=== PATIENT | male | born 1955 | race Caucasian/White ===

== ENCOUNTER 2018-12-05 00:12 | Observation (INO) | payer MEDICARE, OTHER ==
[~2018-12-05] VITALS: Ht 170.2 cm; Wt 76.2 kg
[2018-12-05] VITALS (12 sets, daily range): BP systolic 113–149; BP diastolic 74–97
[~2018-12-05 00:12] MED LIST: ATOR40TA24 PO; LISI20TA29 PO
[2018-12-05] MEDS ORDERED: ACETAMINOPHEN 500 MG TAB PO ONE (09:30)
[2018-12-05] MEDS ORDERED: FAMOTIDINE 20 MG TAB PO ONE (09:30)
[2018-12-05] MEDS ORDERED: MIDAZOLAM 2 MG/2 ML VIAL IVP PRN (09:30)
[2018-12-05] MEDS ORDERED: ceFAZolin(*) 2GM/D5W 50ML 50 ML IVPB ONE (09:30)
[2018-12-05] MEDS ORDERED: CELECOXIB 200 MG CAP PO ONE (09:30)
[2018-12-05] MEDS ORDERED: NORMOSOL R SOLN(*) 1000 ML BAG 1,000 ML IV PRN (09:30)
[2018-12-05] MEDS ORDERED: ROPIVACAINE/EPI/CLONIDINE/KET 50 ML SYRINGE INJ ONE (09:30)
[2018-12-05] MEDS ORDERED: LIDOCAINE/SOD BICARB 8.4% SYR ID ONE (09:30)
[2018-12-05] MEDS ORDERED: TRANEXAMIC AC 1000 MG/10ML SDV 1,000 MG in DEXTROSE 5% 50 ML BAG 50 ML IV ONE (09:30)
[2018-12-05] MEDS ORDERED: BACITRACIN 50000 UNIT/VIAL 100,000 UNIT in NS 0.9% 3000 ML IRRIGATION BAG 3,000 ML IR ONE (09:30)
[2018-12-05] MEDS ORDERED: PREGABALIN 150 MG CAPSULE PO ONE (09:30)
[2018-12-05] MEDS ORDERED: LIDOCAINE MPF 1% 5 ML VIAL ONE (09:59)
[2018-12-05] MEDS ORDERED: DEXAMETHASONE SOD PHOS 10MG/ML ONE (09:59)
[2018-12-05] MEDS ORDERED: fentaNYL CITR 100 MCG/2 ML AMP ONE (09:59)
[2018-12-05] MEDS ORDERED: ONDANSETRON 4 MG/2 ML VIAL ONE (09:59)
[2018-12-05] MEDS ORDERED: PROPOFOL EMUL(*) 10MG/ML 20 ML 20 ML ONE (09:59)
[2018-12-05] MEDS ORDERED: MAGNESIUM HYDROXIDE* 30ML UDCP PO PRN (15:10)
[2018-12-05] MEDS ORDERED: ONDANSETRON 4 MG/2 ML VIAL IVP PRN (15:10)
[2018-12-05] MEDS ORDERED: PROMETHAZINE 25 MG/ML 1 ML AMP IVP PRN (15:10)
[2018-12-05] MEDS ORDERED: BISACODYL 10 MG SUPP PR PRN (15:10)
[2018-12-05] MEDS ORDERED: diphenhydrAMINE 50 MG/ML VIAL IVP PRN (15:10)
[2018-12-05] MEDS ORDERED: MAGNESIUM CITRATE 300 ML BTL PO PRN (15:10)
[2018-12-05] MEDS ORDERED: LR 1000 ML BAG 1000 ML IV PRN (15:10)
[2018-12-05] MEDS ORDERED: FLUSH 10 ML SYR IVP PRN (15:10)
[2018-12-05] MEDS ORDERED: diphenhydrAMINE 25 MG CAP PO PRN (15:10)
[2018-12-05] MEDS ORDERED: HYDROmorphone HCL 2 MG/ML SDV IVP PRN (15:10)
[2018-12-05] MEDS ORDERED: ZOLPIDEM TARTRATE 5 MG TAB PO PRN (15:10)
--- NOTE | 2018-12-05 16:23 | RADIOLOGY IMAGING REPORT ---
FACILITY: [facility] - [place] PATIENT NAME: Daniella Jeffers : 1955 MR: [id number] V: [id number] EXAM DATE: ORDERING PHYSICIAN: DANIELLA TORO TECHNOLOGIST: Location: [facility] - [place] Patient: Daniella Jeffers : 1955 Visit/Account:[id number] Date of Sevice: 12/05/2018 EXAMINATION: Left knee, 2 views 12/05/2018 3:09 PM HISTORY: S/P TOTAL KNEE ARTHROPLASTY, CHECK PLACEMENT COMPARISON: 07/19/2008 FINDINGS: Indwelling left TKA appears to be well seated and articulates appropriately. There is pos tsurgical soft tissue gas. No acute bony finding otherwise. IMPRESSION: Status post left TKA. Report Dictated By: Heriberto Dash MD at 12/05/2018 3:48 PM Report E-Signed By: Heriberto Dash MD at 12/05/2018 3:49 PM WSN:[email or web address]
--- NOTE | 2018-12-05 16:48 | Hospitalist Consultation ---
History of Present Illness Requesting Physician Dr. Barry Reason for Consult Medical Management Chief Complaint s/p left knee replacement History of Present Illness She was admitted s/p left knee replacement. It is reported the surgery went well and without complication. History Problems: (1) Hypertension Status: Chronic (2) Hyperlipidemia Status: Chronic Home Meds Reported Medications Atorvastatin Calcium (LIPITOR) 40 Mg Tablet, 1 TAB PO QHS, TAB 11/28/18 Lisinopril (LISINOPRIL) 20 Mg Tablet, 20 MG PO QHS, TAB 11/28/18 Allergies: Coded Allergies: No Known Drug Allergies (Unverified , 11/28/18) Patient History: FH: ME (myocardial infarction) FATHER, , Age:68 FH: hypertension BROTHER OR SISTER Hx Smoking: No Caffeine Intake: Coffee Caffeine/Cups Per Day: 3CPD Hx Alcohol Use: Yes Hx Substance Use Disorder: No Social Drug Use: Never History of IV Drug Use: No Review of Systems All Systems Reviewed/Normal: Yes, Except as Noted Exam Vital Signs Vital Signs Date Time Temp Pulse Resp B/P (MAP) Pulse Ox O2 Delivery O2 Flow Rate FiO2 12/05/18 16:00 83 16 91 12/05/18 09:30 98.2 149/97 (114) Room Air General Appearance: Alert, Awake, No Acute Distress, Afebrile Neuro: No Gross deficits Cardiovascular: Regular Rate and Rhythm Respiratory: No Respiratory Distress, Clear to Auscultation GI: Abd Soft and Non-Tender Psych: Alert & Oriented X3, Appropriate Mood & Affect Assessment and Plan Problems: (1) Status post left knee replacement Status: Acute Assessment & Plan: Followed by Dr. Barry. He will be placed on Aspirin for DVT prophylaxis. (2) Hypertension Status: Chronic Assessment & Plan: He is on chronic treatment with Lisinopril. This has been restarted with hold parameters. (3) Hyperlipidemia Status: Chronic Assessment & Plan: He is on chronic treatment with Atorvastatin. Venous Thromboembolism Antithrombotics Is Pt On Any Antithrombotics?: No Problem Qualifiers (1) Hypertension: Hypertension type: essential hypertension Qualified Codes: I10 - Essential (primary) hypertension LEXY REYES [employer] Dec 05, 2018 16:48
--- NOTE | 2018-12-05 17:01 | OPERATIVE REPORT 1 ---
EVENT DATE: December 05, 2018 SURGEON: Joshua Barry MD ANESTHESIOLOGIST: Sunil Hallman MD ANESTHESIA: General and spinal. ELECTRONIC SCALE TESTER: Ermias Avila PA-C PREOPERATIVE DIAGNOSIS Left knee osteoarthritis with significant deformity. POSTOPERATIVE DIAGNOSIS Left knee osteoarthritis with significant deformity. PROCEDURE PERFORMED Left total knee arthroplasty which deserves modifier -22 since we had to use stem components secondarily due to the patient's deformity, and that required time and a half of surgeon effort and skill as well as time to perform the procedure. FINDINGS The patient has a significant amount of arthritic changes associated with the knee, but was amenable for total knee replacement once we used the stem components to correct the deformity. ESTIMATED BLOOD LOSS About 220 mL. DRAINS None. COMPLICATIONS None. TOURNIQUET TIME 16 minutes, which was only during cementation of the components. IMPLANTS USED Stayzilla system with a 6 left posterior stabilized femur with a 6 rotating platform revision tibial component, a 6 x 10 mm rotating platform posterior stabilized insert, and a 38 anatomic patella. SPECIMENS None. INDICATIONS AND HISTORY This patient is a 63-year-old male who presented to my clinic for evaluation of left knee pain and irritation going on for some time. He continued to have pain and irritation despite conservative management, and so therefore, he wanted to go ahead with a total knee arthroplasty. We talked about the implications of a total knee arthroplasty and the risks and benefits associated with this, and informed consent was obtained. We also talked about his significant deformity and how it is going to take a little bit longer, and there are more risks associated with that given the fact that his femur was subluxed medially compared to the tibia and there was a significant amount of osteophyte formation and laxity associated with the ligaments. DESCRIPTION OF PROCEDURE As the patient was brought into the operating room, he and the procedure were both verified. He was placed supine on the operating room, and after being given a spinal by Anesthesia, he was induced and intubated. The left lower extremity was then prepped and draped in the usual fashion. A timeout was observed verifying the correct patient and procedure. The standard incision was made over the left knee directly over the patella and a little bit towards the medial side on the tubercle. It was taken through the skin and subcutaneous tissue until I was able to do a medial parapatellar approach. Once able to do a medial parapatellar approach, I then subluxed the patella to the lateral side and then removed a lot of the osteophytes off the patella and also some of the thickened tissue and irritated tissue over this site. I was unable to remove a lot of synovium and then do medial releases. We needed to do a medial release on that side secondarily due to the fact that he had subluxation of the femur. I was able to remove a significant amount of osteophytes from the tibia and the femur in order to gain access to the true bone on both sides and then remove the anterior menisci that were extruded over the anterior aspect of the medial side and a little bit over the lateral side. Once I was able to do some releases, I was then able to get access to the femur itself and then put it in high flexion. Once into high flexion, I was then able to drill the central drill hole after removing the osteophytes off the notch. I took quite a bit of time to clear off the notch itself as he has bone that had pretty much encased over this entire aspect. I was then able to put in the intramedullary guide and put it on the standard [id number] cup for the Attune system on the left side. This then sized the distal femur to the 6 size femur, and then we put on the 6 four-in-one cutting block and was able to cut off the regular anterior and posterior cuts and chamfer cuts without any major issues. I then put in the notch-cutting block and then cut the notch without any major difficulty. I then turned attention to the tibia. Once on the tibia, I was then able to remove some of the posterior menisci still and a little bit of the rest of the ACL and PCL in this area. I then was able to drill intramedullary into the tibia itself and then used the intramedullary guide from the Attune system in order to get alignment of the tibia. Once I did this, I then cut a wafer off the tibia, cutting 2 mm off the medial side to try and preserve as much bone stock as possible as we knew we would need a large poly with the significant deformity associated with it. I then took a significant amount of time to remove a lot of the posterior osteophytes off the distal femur and as well as on the proximal tibia. In addition, I also had to release some of the capsule in this area as he did have a flexion contracture on the one side, and then we were also able to remove the rest of the extruded menisci, but there was a significant amount of soft tissue irritation and damage over this area. Once we got back up to a good position, I was then able to put in the femoral spacing block, and everything looked pretty good for a 10 mm poly. I then prepped the rest of the tibia with drilling the intramedullary hole and then using the step cut drill out of the revision system from the tibia in order to put it down into the femoral canal and then put in the standard tibial prep without any difficulty. I then trialed the 8 mm. This was a little bit too loose, so then we went to a 10 mm, and this fit well, and so therefore, this was the final component chosen, and it had good both extension and gaps within the flexion and extension aspects. I then prepared the patella without any major difficulty by first sizing the patella, and then cutting 9.5 mm off, sizing it to a 38 mm patella, drilling the holes, and then putting in the trial patella. This tracked well, and so therefore, these were the final components chosen on this, too. I then exsanguinated the limb and then put up the tourniquet. I then cemented in all the components into the knee, made sure it had good range of motion, and then held it in extension for the hardening of the cement. I then put the tourniquet back up and then infiltrated with a pain cocktail throughout the knee itself. I then irrigated with the Irrisept irrigation in order to clean off everything and then let it sit for a minute, and then we did it again and let it sit for a minute again. I then irrigated again with copious amounts of saline with pulsatile lavage, which I had throughout the case. I closed the medial parapatellar approach with an 0 Quill. This was then followed by 2-0 Vicryl in the fat layer and 2-0 Stratafix in the skin, followed by a 4-0 Monocryl and a Primapore dressing. The wound was then dressed with a standard dressing, and then the patient was awakened, extubated, and transferred to PACU in stable condition. AKI
[2018-12-05] MEDS: ATORVASTATIN 40 MG TAB PO SCH (21:19)
[2018-12-05] MEDS: ASPIRIN 325 MG TAB PO SCH (21:19)
[2018-12-05] MEDS: LISINOPRIL 20 MG TAB PO SCH (21:19)
[2018-12-05] MEDS: ceFAZolin(*) 1 GM VIAL 1 GM in NS(*) 0.9% 100 ML ADDVANT BAG 100 ML IVPB SCH (21:19)
[2018-12-06 04:00] VITALS: BP 102/60
[2018-12-06] MEDS: ceFAZolin(*) 1 GM VIAL 1 GM in NS(*) 0.9% 100 ML ADDVANT BAG 100 ML IVPB SCH ×2 (05:45→12:25)
[2018-12-06 07:06] VITALS: BP 112/71
--- NOTE | 2018-12-06 09:34 | Hospitalist Progress Note ---
Subjective Progress Notes Subjective He has no complaints this morning. He is still requiring 3L of oxygen. He had no acute events overnight. Patient Complains of: Cardiovascular: No: Chest Pain Respiratory: No: Shortness of Breath Physical Exam Vital Signs Date Time Temp Pulse Resp B/P (MAP) Pulse Ox O2 Delivery O2 Flow Rate FiO2 12/06/18 09:04 93 Nasal Cannula 3.0 12/06/18 07:06 98.2 78 18 112/71 (85) Intake and Output 12/06/18 07:00 Intake Total 3200 ml Balance 3200 ml Intake Oral 800 ml IV Total 2400 ml # Voids 3 General Appearance: Alert, Awake, No Acute Distress, Afebrile Neuro: No Gross deficits Cardiovascular: Regular Rate and Rhythm Respiratory: No Respiratory Distress, Clear to Auscultation GI: Soft and Non-Tender Psych: Alert & Oriented X3, Appropriate Mood & Affect Result Diagram: 12/06/18 0437 Assessment and Plan Problems: (1) Status post left knee replacement Status: Acute Assessment & Plan: Followed by Dr. Barry. He will be placed on Aspirin for DVT prophylaxis. Will add flutter therapy to IS for improved oxygenation. (2) Hypertension Status: Chronic Assessment & Plan: He is on chronic treatment with Lisinopril. This has been restarted with hold parameters. (3) Hyperlipidemia Status: Chronic Assessment & Plan: He is on chronic treatment with Atorvastatin. Exam Sepsis Risk: No Definite Risk Problem Qualifiers (1) Hypertension: Hypertension type: essential hypertension Qualified Codes: I10 - Essential (primary) hypertension LEXY REYES Dec 06, 2018 09:34
[2018-12-06 10:53] VITALS: Ht 170.2 cm; Wt 76.2 kg
[2018-12-06 11:11] VITALS: BP 113/66
--- NOTE | 2018-12-06 12:16 | NUR ---
Physical Therapy Impression PT samy completed and pt met functional mobility goals with initial visit. Pt would like a second visit this afternoon to provide instruction for his regarding placement of CPM on the bed and adjustments as needed. Pt encouraged to ambulate with nursing as desired and utilize a step-to pattern if pain increases. Pt currently ambulating effectively with a step-through gait pattern but notes that discomfort is fairly significant. Physical Therapy Goals Mobility goals met with initial visit 1. Pt to be modified indep with bed mobility and supine<>Sit trnsfrs 2. Pt to be Modified indep with sit to/from stand transfers 3. Pt to be Modified indep with ambulation x 100' with FWW 4. Pt to julieta up/down steps with rail and SBA/Modified indep 5. Pt/CG to be indep with use of CPM and progress flexion as tolerated Patient's Goals
[2018-12-06 16:06] VITALS: BP 125/77
[2018-12-06 19:45] VITALS: BP 131/55
[2018-12-06] MEDS: ATORVASTATIN 40 MG TAB PO SCH (20:36)
[2018-12-06] MEDS: LISINOPRIL 20 MG TAB PO SCH (20:36)
[2018-12-06] MEDS: ASPIRIN 325 MG TAB PO SCH (20:36)
[2018-12-06 22:20] VITALS: BP 136/89
[2018-12-07 02:21] VITALS: BP 118/82
[2018-12-07] MEDS ORDERED: OXYC-865 PO (07:41)
[2018-12-07 07:56] VITALS: BP 111/72
[2018-12-07] MEDS ORDERED: ASPI-757 PO (09:12)
--- NOTE | 2018-12-07 09:14 | Hospitalist Progress Note ---
Subjective Progress Notes Subjective He was admitted after knee replacement. He has no complaints. He had no acute events overnight. Patient Complains of: Cardiovascular: No: Chest Pain Respiratory: No: Shortness of Breath Physical Exam Vital Signs Date Time Temp Pulse Resp B/P (MAP) Pulse Ox O2 Delivery O2 Flow Rate FiO2 12/07/18 07:56 99.2 83 16 111/72 (85) 88 Bi-PAP 2.0 Intake and Output 12/07/18 06:59 Intake Total 2945 ml Balance 2945 ml Intake Oral 2740 ml IV Total 205 ml # Voids 2 General Appearance: Alert, Awake, No Acute Distress, Afebrile Neuro: No Gross deficits Cardiovascular: Regular Rate and Rhythm Respiratory: No Respiratory Distress, Clear to Auscultation GI: Soft and Non-Tender Psych: Alert & Oriented X3, Appropriate Mood & Affect Result Diagram: 12/07/18 0510 Assessment and Plan Problems: (1) Status post left knee replacement Status: Acute Assessment & Plan: Followed by Dr. Barry. He will be placed on Aspirin for DVT prophylaxis. Will add flutter therapy to IS for improved oxygenation. He will require 2L oxygen at home at all times. He will follow up with PCP next week. (2) Hypertension Status: Chronic Assessment & Plan: He is on chronic treatment with Lisinopril. This has been restarted with hold parameters. (3) Hyperlipidemia Status: Chronic Assessment & Plan: He is on chronic treatment with Atorvastatin. Exam Sepsis Risk: No Definite Risk Problem Qualifiers (1) Hypertension: Hypertension type: essential hypertension Qualified Codes: I10 - Essential (primary) hypertension LEXY REYES Dec 07, 2018 09:14
== END 2018-12-07 09:19 | disposition home or self-care (01) ==
LOC: OR 00:12 → MED 16:28
PROVIDERS: ADMIT Orthopaedic Surgery; ATTEND Orthopaedic Surgery
DX: M17.12 Unilateral primary osteoarthritis, left knee (principal); M21.962 Unspecified acquired deformity of left lower leg; I10 Essential (primary) hypertension; E78.5 Hyperlipidemia, unspecified; R05 Cough; J02.9 Acute pharyngitis, unspecified; Z86.718 Personal history of other venous thrombosis and embolism; Z79.01 Long term (current) use of anticoagulants
CPT/HCPCS: 27447; 36415; 73560; 85014; 85018; 85610; 86850; 86900; 86901; 94667; 97116; 97161; 97530; A9270; C1713; C1776; G0378; J0690; J1100; J2001; J2250; J2405; J2704; J3010; J7060